=== PATIENT | male | born 1975 | race Caucasian/White ===

== ENCOUNTER 2018-02-10 19:45 | Emergency (ER) | payer SELFPAY ==
[2018-02-10 19:56] VITALS: RESP 20; O2SAT 99
[2018-02-10] MEDS ORDERED: Sodium Chloride 0.9% 1,000 ML IV ONE ×2 (20:10→21:26)
[2018-02-10 20:24] LABS: BASO # 0.1 K/uL (0.0-0.2); BASO % 0.7 % (0.0-2.0); EOS % 0.1 % (0.0-4.0); HEMOGLOBIN 15.6 g/dL (12.0-18.0); LYMPH # 1.5 K/uL (1.0-4.3); LYMPH % 9.5 % (20.0-40.0); MEAN CELL VOLUME 89.1 fL (80.0-94.0); MEAN CORPUSCULAR HEMOGLOBIN 30.9 pg (27.0-31.0); MEAN CORPUSCULAR HGB CONC 34.7 g/dL (33.0-37.0); MEAN PLATELET VOLUME 8.4 fL (7.2-11.7); MONO # 0.6 K/uL (0.0-0.8); MONO % 3.8 % (0.0-10.0); NEUT # 13.5 K/uL (1.8-7.0); NEUT % 85.9 % (50.0-75.0); NRBC % 0.1 % (0.0-2.0); PLATELET COUNT 330 K/uL (130-400); RBC 5.04 Mil/uL (4.40-5.90); RED CELL DISTRIBUTION WIDTH 13.1 % (11.5-14.5); WHITE BLOOD COUNT 15.7 K/uL (4.8-10.8)
[2018-02-10 20:52] LABS: BASOPHIL 1 % (0-2); LYMPHOCYTE 13 % (20-40); MONOCYTE 6 % (0-10); NEUTROPHIL 80 % (50-75); PLATELET ESTIMATE NORMAL (NORMAL); TOTAL CELLS COUNTED 100
[2018-02-10 20:56] LABS: ALB/GLOB RATIO 1.5 (1.0-2.1); ALBUMIN 4.4 g/dL (3.5-5.0); ALT/SGPT 28 U/L (21-72); AST/SGOT 26 U/L (17-59); BLOOD UREA NITROGEN 10 mg/dL (9-20); CALCIUM 9.7 mg/dl (8.6-10.4); GFR NON-AFRICAN AMERICAN > 60; LIPASE 34 U/L (23-300)
--- NOTE | 2018-02-10 21:13 | C.PDOC ---
History Of Present Illness 42 year old male, with no significant past medical history, presents to the ED for evaluation of vomiting and diffuse abdominal pain which started yesterday. Patient also reports experiencing chest pain after vomiting. Patient admits to drinking yesterday. He denies fever, chills, cough, shortness of breath, dizziness, syncope, urinary symptoms, recent antibiotics use, or recent travel. Patient's last bowel movement was yesterday, states it was normal. Time Seen by Provider: 02/10/18 19:55 Chief Complaint (Nursing): GI Problem History Per: Patient History/Exam Limitations: no limitations Onset/Duration Of Symptoms: Hrs Quality Of Discomfort: "Pain" Associated Symptoms: Nausea, Vomiting. denies: Fever, Chills Last Bowel Movement: Yesterday Additional History Per: Patient Past Medical History Reviewed: Historical Data, Nursing Documentation, Vital Signs Vital Signs: Last Vital Signs Temp 98.3 F 02/10/18 19:52 Pulse 56 L 02/10/18 19:52 Resp 20 02/10/18 19:52 BP 139/55 L 02/10/18 19:52 Pulse Ox 99 02/10/18 19:52 - Medical History PMH: Gastrointestinal Ulcer, Gall Bladder Disease (gallstones) Surgical History: No Surg Hx Family History: States: Unknown Family Hx - Social History Hx Alcohol Use: Yes Hx Substance Use: Yes - Immunization History Hx Tetanus Toxoid Vaccination: No Hx Influenza Vaccination: No Hx Pneumococcal Vaccination: No Review Of Systems Constitutional: Negative for: Fever, Chills Cardiovascular: Positive for: Chest Pain Gastrointestinal: Positive for: Vomiting, Abdominal Pain Genitourinary: Negative for: Dysuria, Hematuria Neurological: Negative for: Dizziness, Other Physical Exam - Physical Exam Appears: Non-toxic, No Acute Distress, Other (actively vomiting ) Skin: Normal Color, Warm, Dry Head: Atraumatic, Normacephalic Eye(s): bilateral: Normal Inspection Oral Mucosa: Moist Neck: Supple Chest: Symmetrical, No Deformity, Tenderness (anterior chest wall ) Cardiovascular: Rhythm Regular, No Murmur Respiratory: Normal Breath Sounds, No Rales, No Rhonchi, No Wheezing Gastrointestinal/Abdominal: Bowel Sounds (normal ), Soft, Tenderness (diffuse ), No Guarding, No Rebound Extremity: Normal ROM, Capillary Refill (less than 2 seconds ) Neurological/Psych: Oriented x3, Normal Speech, Normal Cognition ED Course And Treatment - Laboratory Results Result Diagrams: 02/10/18 21:21 02/10/18 20:39 O2 Sat by Pulse Oximetry: 99 (on RA) Pulse Ox Interpretation: Normal - CT Scan/US CT A/P Other Rad Studies (CT/US): Read By Radiologist, Radiology Report Reviewed CT/US Interpretation: CLINICAL HISTORY: Abdominal pain, vomiting. TECHNIQUE: Multiple axial, coronal, sagittal CT images were obtained through the abdomen and pelvis after administration of intravenous contrast material. 100MLS VISI 320. COMMENTS: Several subcentimeter hepatic hypodensities are present too small to accurately characterize consistent with small cysts versus hemangiomas. There is no intra or extrahepatic biliary ductal dilatation. The spleen is normal. The gallbladder is within normal limits. The pancreas is of normal contour and attenuation characteristics. There is no evidence of adrenal mass. Both kidneys demonstrate prompt and equal nephrograms. The kidneys are normal in size, shape and configuration. There is no evidence of renal or ureteral mass. No renal or ureteral calculi are identified. There is no hydroureter or hydronephrosis. There is a 1.5 x 1.2 cm hyperdense lesion present in the mid pole of the left kidney measuring approximately 65 Hounsfield units which may represent hemorrhagic or proteinaceous cyst. Nevertheless further evaluation is recommended with CT or MRI pre and post contrast. Several subcentimeter cortical simple cysts present in the left kidney. Small hiatal hernia is seen. No evidence for appendicitis. There is circumferential wall thickening involving all colonic segments consistent with sanchez-colitis. No evidence for small or large bowel obstruction. There is no evidence of abdominal ascites or lymphadenopathy. There are small bilateral inguinal hernias each containing fluid. There is no evidence of intrinsic or extrinsic bladder mass. There is no pelvic ascites or lymphadenopathy. Images of the lung bases show no evidence of pleural or parenchymal mass. There are no pleural effusions. The bony structures are free of lytic or blastic lesions. IMPRESSION: 1. Several subcentimeter hepatic hypodensities too small to accurately characterize consistent with small cysts versus hemangiomas. 2. Hyperdense lesion in the mid pole of the left kidney measuring approximately 65 Hounsfield units which may represent hemorrhagic or proteinaceous cyst. Nevertheless further evaluation is recommended with CT or MRI pre and post contrast. 3. Several subcentimeter cortical simple cysts present in the left kidney. 4. Small hiatal hernia. 5. Sanchez-colitis. Infectious and inflammatory etiologies are considered. 6. Small bilateral inguinal hernias each containing fluid. Medical Decision Making Medical Decision Making: Progress: Bloodwork, urinalysis, CT A/P, Obstructive Series XR, EKG ordered and reviewed. Morphine IVP, Pepcid IVP, Reglan IVP, Zofran IVP, and IV Fluids given. 0100 Case discussed with Valentine Bruno (hospitalist), who accepts the patient. Requests CBC and antibiotics. Patient states he left a rent-a-car at the gas station prior to the ambulance picking him up. Patient states he needs to leave the ED to go and move his car. Patient states he will return later tonight. Patient refuses to sign AMA form. Patient returned to the ED at around 0254. Accepted for admission. Disposition - Disposition Disposition: AGAINST MEDICAL ADVICE - Scribe Statement The provider has reviewed the documentation as recorded by the Scribe (Argelia Bruno) Provider Attestation: All medical record entries made by the Scribe were at my direction and personally dictated by me. I have reviewed the chart and agree that the record accurately reflects my personal performance of the history, physical exam, medical decision making, and the department course for this patient. I have also personally directed, reviewed, and agree with the discharge instructions and disposition.
[2018-02-10 21:25] LABS: BASO # 0.1 K/uL (0.0-0.2); BASO % 0.2 % (0.0-2.0); HEMOGLOBIN 14.2 g/dL (12.0-18.0); LYMPH # 0.9 K/uL (1.0-4.3); LYMPH % 3.9 % (20.0-40.0); MEAN CELL VOLUME 90.8 fL (80.0-94.0); MEAN CORPUSCULAR HEMOGLOBIN 30.7 pg (27.0-31.0); MEAN CORPUSCULAR HGB CONC 33.9 g/dL (33.0-37.0); MEAN PLATELET VOLUME 8.4 fL (7.2-11.7); MONO # 0.7 K/uL (0.0-0.8); MONO % 2.7 % (0.0-10.0); NEUT # 22.4 K/uL (1.8-7.0); NEUT % 93.2 % (50.0-75.0); NRBC % 0.2 % (0.0-2.0); RBC 4.62 Mil/uL (4.40-5.90); RED CELL DISTRIBUTION WIDTH 13.1 % (11.5-14.5)
[2018-02-10 21:26] LABS: WHITE BLOOD COUNT 24.1 K/uL (4.8-10.8)
[2018-02-10] MEDS ORDERED: Iodixanol 320 MG/ML 100 ML BOTTLE IV ONE (21:38)
[2018-02-10] MEDS ORDERED: Sodium Chloride 0.9% 1,000 ML ONE (22:07)
[2018-02-11] MEDS ORDERED: metroNIDAZOLE IV 500 mg/100 ml 500 MG/100 ML BAG IVPB STA (00:05)
[2018-02-11] MEDS ORDERED: Ciprofloxacin 400mg/200ml D5W 400 MG/200 ML BAG IVPB STA (00:06)
[2018-02-11] MEDS ORDERED: metroNIDAZOLE IV 500 mg/100 ml 500 MG/100 ML BAG IVPB SCH (00:15)
[2018-02-11] MEDS ORDERED: Sodium Chloride 0.9% 1,000 ML IV SCH (00:15)
[2018-02-11] MEDS ORDERED: Ciprofloxacin 400mg/200ml D5W 400 MG/200 ML BAG IVPB SCH (00:15)
[2018-02-11 00:30] VITALS: BP 132/70; PULSE 74; TEMP 98.9
[2018-02-11 00:39] LABS: SQUAMOUS EPITHIAL < 1 /hpf (0-5); URINE BILIRUBIN NEGATIVE (NEGATIVE); URINE BLOOD NEGATIVE (NEGATIVE); URINE CLARITY Clear (Clear); URINE COLOR Yellow (YELLOW); URINE GLUCOSE (UA) NORMAL (Normal); URINE LEUKOCYTE ESTERASE NEG Leu/uL (Negative); URINE PROTEIN 1+ mg/dL (NEGATIVE); URINE UROBILINOGEN NORMAL mg/dL (0.2-1.0)
[2018-02-11 00:55] LABS: BARBITURATES, UR NEGATIVE (NEGATIVE); BENZODIAZEPINES, UR NEGATIVE (NEGATIVE); PHENCYCLIDINE, UR NEGATIVE (NEGATIVE)
[2018-02-11 00:56] LABS: OPIATES, UR POSITIVE (NEGATIVE)
[2018-02-11] MEDS ORDERED: Lactobacillus Acidophilus 500 MU Cap PO SCH (10:00)
--- NOTE | 2018-02-11 10:10 | RAD ---
Date of service: 02/10/2018 PROCEDURE: Radiographs of the chest and abdomen (obstructive series) HISTORY: abd pain COMPARISON: No prior. TECHNIQUE: AP radiograph of the chest, with upright and supine radiographs of the abdomen. FINDINGS: CHEST: Lungs: Clear. Cardiovascular: Normal size heart. No pulmonary vascular congestion. No aortic atherosclerotic calcification present Pleura: No pleural fluid. No pneumothorax. Other findings: None. ABDOMEN AND PELVIS: Bowel: Unremarkable bowel gas pattern. No evidence of mechanical obstruction. Free air: None. Bones: Unremarkable. Other findings: None. IMPRESSION: Unremarkable radiographs of chest and abdomen. No evidence of mechanical bowel obstruction.
--- NOTE | 2018-02-11 11:55 | CT ---
Date of service: 02/10/2018 PROCEDURE: CT Abdomen and Pelvis. HISTORY: Abdominal pain/vomiting COMPARISON: Correlation made with obstructive series obtained earlier same day TECHNIQUE: Contiguous helical/transaxial sections of the abdomen pelvis performed following intravenous injection of approximately 100 cc Visipaque 320 contrast material. Additional 2D sagittal and coronal reformats generated. Radiation dose: Total exam DLP = 330.54 mGy-cm. This CT exam was performed using one or more of the following dose reduction techniques: Automated exposure control, adjustment of the mA and/or kV according to patient size, and/or use of iterative reconstruction technique. FINDINGS: LOWER THORAX: The lung bases clear. No infiltrate effusion or basilar pneumothorax. Heart size within range of normal. No significant pericardial effusion. The there is a small hiatal hernia with slight wall thickening of the distal esophagus likely due to protrusion of gastric mucosa. Esophagitis not excluded. LIVER: Liver is upper limits of normal measuring nearly 19 cm in CC dimension. Minor fatty hepatic infiltration.. There are a few tiny subcentimeter foci seen scattered about the hepatic parenchyma (1 in the superior aspect right lobe and the superior aspect left lobe liver) too small to characterize though probably represent small hepatic cysts or hemangiomas GALLBLADDER AND BILE DUCTS: Gallbladder physiologically distended. No evidence of intraluminal gallbladder calculi. PANCREAS: Unremarkable. No mass. No ductal dilatation. The visualized portions of the pancreas appear unremarkable. SPLEEN: Unremarkable. No splenomegaly. ADRENALS: There is a left adrenal nodule measures approximately 13 mm. Followup the noncontrast MRI of the adrenal glands suggested for further evaluation KIDNEYS AND URETERS: Kidneys demonstrate relatively symmetric nephrograms. No evidence of nephrolithiasis or hydronephrosis. There appear to be at least 3 low-attenuation foci left kidney the largest which is partially exophytic and measures approximately 15 mm. 2 of these foci exhibit Hounsfield units in the mid 30s possibly representing simple cysts. Another exophytic lesion seen along the lateral cortex lower pole measuring 8.6 mm demonstrates Hounsfield units in the upper 60s suggesting a solid lesion. While this could represent a hyperdense or hemorrhagic cyst as well, the possibility of a solid lesion including neoplasm must be considered. Follow-up ultrasound suggested. BLADDER: Urinary bladder is incompletely distended which in part accounts for thick-walled appearance. Muscular hypertrophy may contribute. Cystitis would be less likely in a male patient though not completely excluded therefore correlation with urinalysis recommended REPRODUCTIVE: Prostate gland measures approximately 4.2 cm in transverse dimension APPENDIX: Normal appearing appendix without evidence of periappendiceal inflammatory changes. BOWEL: Evaluation of the bowel is somewhat limited due to the lack of oral contrast material. The stomach is incompletely distended.. Visualized loops of small bowel exhibit relatively normal contour and caliber. No evidence of acute mechanical small bowel obstruction. There is wall thickening of the distal at ascending, transverse and a good portion of the descending colon consistent with a nonspecific diffuse colitis; rule out infectious or inflammatory etiologies. PERITONEUM: Unremarkable. No fluid collection. No free air. LYMPH NODES: Unremarkable. No enlarged lymph nodes. VASCULATURE: Unremarkable. No aortic aneurysm. No significant aortic atherosclerotic calcification or mural plaque present. BONES: Acute fractures. OTHER FINDINGS: None. IMPRESSION: Findings are consistent with a a nonspecific colitis as described. Clinical correlation recommended. Borderline hepatomegaly. Mild fatty infiltration head there are few tiny foci low-attenuation within the hepatic parenchyma possibly representing small cysts or hemangiomas. Follow-up CT scan at interval recommended. Several low-attenuation foci left kidney 1 of which exhibits Hounsfield units in the upper 60s. While this could represent a hyperdense or hemorrhagic cyst, the possibility of neoplasm not excluded. Follow-up ultrasound recommended for further evaluation the the Left adrenal nodule.. Follow-up MRI of the adrenal glands recommended. This report was placed in PA review folder for follow up.
--- NOTE | 2018-02-11 12:07 | CARD ---
APPROVED REPORT Date of service: 02/10/2018 EKG Measurement Heart [id number] [place] 156P [id number] <Conclusion> Sinus bradycardia Incomplete right bundle branch block Borderline ECG
== END 2018-02-11 00:27 | disposition left against medical advice (07) ==
LOC: C.ER 19:45 → C.9E 02-11 00:07 → UNDOADMIN 02-11 00:07 → UNDODISIN 02-11 00:20 → C.9E 02-11 00:32 → C.5S 02-11 00:32
DX: K52.9 Noninfective gastroenteritis and colitis, unspecified (principal); N28.1 Cyst of kidney, acquired; K44.9 Diaphragmatic hernia without obstruction or gangrene

== ENCOUNTER 2018-02-11 01:37 | Inpatient (IN) | payer OTHER ==
[2018-02-11] MEDS ORDERED: Sodium Chloride 0.9% 1,000 ML IV ONE (01:59)
[2018-02-11] MEDS ORDERED: Ciprofloxacin 400mg/200ml D5W 400 MG/200 ML BAG IVPB STA (02:00)
[2018-02-11] MEDS ORDERED: metroNIDAZOLE IV 500 mg/100 ml 500 MG/100 ML BAG IVPB STA (02:01)
[2018-02-11 02:35] LABS: BASO # 0.1 K/uL (0.0-0.2); BASO % 0.3 % (0.0-2.0); HEMOGLOBIN 12.9 g/dL (12.0-18.0); LYMPH # 1.2 K/uL (1.0-4.3); LYMPH % 7.9 % (20.0-40.0); MEAN CELL VOLUME 89.4 fL (80.0-94.0); MEAN CORPUSCULAR HEMOGLOBIN 30.1 pg (27.0-31.0); MEAN CORPUSCULAR HGB CONC 33.7 g/dL (33.0-37.0); MEAN PLATELET VOLUME 8.4 fL (7.2-11.7); MONO # 0.5 K/uL (0.0-0.8); NEUT # 13.4 K/uL (1.8-7.0); NEUT % 88.8 % (50.0-75.0); PLATELET COUNT 261 K/uL (130-400); RBC 4.29 Mil/uL (4.40-5.90); RED CELL DISTRIBUTION WIDTH 12.8 % (11.5-14.5); WHITE BLOOD COUNT 15.1 K/uL (4.8-10.8)
[2018-02-11 02:51] LABS: ALB/GLOB RATIO 1.5 (1.0-2.1); ALBUMIN 4.1 g/dL (3.5-5.0); ALT/SGPT 18 U/L (21-72); AST/SGOT 37 U/L (17-59); BLOOD UREA NITROGEN 10 mg/dL (9-20); CALCIUM 8.9 mg/dl (8.6-10.4); GFR NON-AFRICAN AMERICAN > 60
--- NOTE | 2018-02-11 03:16 | CP.PCM.HP ---
History of Present Illness - History of Present Illness History of Present Illness: cc: "I vomited and have chest pain" Mr. Padilla is a 42 year old male with PMH of gastric ulcers with multiple admission to hospitals x3 in 2018 is admitted to [facility] for streaks of blood, bilious vomiting x15 with associated chest pain today. Patient was driving back from [place] on 02/10 morning and had abrupt onset of vomiting while driving. Patient usually goes to [facility] as he lives in [place] for his symptoms but was unable to make it pass [facility], hence admitted here. Patient reports of having EGD done at [facility] and pending colonoscopy. Patient has not been compliant with his follow up with outpatient GI. 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 Patient complains of chest pain that radiates to the abdomen with prominence to the left side and difficulty swallowing. Patient had his last bowel movement on 02/10 and no other urinary complaints. Patient denies any fever, dizziness, palpitations, shortness of breath, cough, nausea, vomiting, dysuria, urinary incontinence or swelling. This episode is very similar to his previous episodes this year. 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 absent: Anorexia, Fever, Frequent Falls, Headache, Increased Appetite, Lethargy, Malaise, Weakness - EENT Eyes: absent: Blurred Vision, Diplopia, Sees Flashes Ears: absent: Ear Discharge, Ear Pain, Tinnitus Nose/Mouth/Throat: absent: Epistaxis, Nasal Discharge, Nasal Trauma, Bleeding Gums, Dysphagia, Odynophagia - Cardiovascular Cardiovascular: Chest Pain, Diaphoresis. absent: Chest Pain with Activity, Dyspnea, Dyspnea on Exertion, Irregular Heart Rhythm, Pain Radiating to Arm /Neck/Jaw - Respiratory Respiratory: absent: Cough, Dyspnea, Change in Mucous Color - Gastrointestinal Gastrointestinal: Hematemesis. absent: Constipation, Diarrhea, Dysphagia, Melena, Nausea, Vomiting - Genitourinary Genitourinary: absent: Difficulty Urinating, Dysuria, Urinary Frequency, Urinary Hesitance - Musculoskeletal Musculoskeletal: absent: Abnormal Gait, Arthralgias, Back Pain, Muscle Weakness, Myalgias, Stiffness, Tingling - Integumentary Integumentary: absent: Bleeding Lesions, Swelling, Unusual Bruising - Neurological Neurological: absent: Abnormal Gait, Dizziness, Numbness, Syncope, Vertigo, Weakness - Psychiatric Psychiatric: absent: Anhedonia, Anxiety, Depression, Hopelessness - Endocrine Endocrine: Excessive Sweating, Fatigue. absent: Cold Intolorance, Heat I ntolorance, Palpitations - Hematologic/Lymphatic Hematologic: absent: Easy Bleeding, Easy Bruising Past Patient History - Infectious Disease Hx of Infectious Diseases: None - Past Social History Smoking Status: Never Smoked Alcohol: Social Drugs: Cannabis - GASTROINTESTINAL Hx Gall Bladder Disease: Yes (gallstones) - PSYCHIATRIC Hx Substance Use: Yes - SURGICAL HISTORY Hx Surgeries: No - ANESTHESIA Hx Anesthesia: No Meds Allergies/Adverse Reactions: Allergies Allergy/AdvReac Type Severity Reaction Status Date / Time Penicillins Allergy Verified 02/10/18 19:56 Physical Exam - Constitutional Appears: Non-toxic, No Acute Distress - Head Exam Head Exam: ATRAUMATIC, NORMOCEPHALIC - Eye Exam Eye Exam: EOMI, Normal appearance, PERRL - ENT Exam ENT Exam: Mucous Membranes Dry Additional comments: erythema in posterior pharynx - Neck Exam Neck exam: Negative for: Lymphadenopathy, Tenderness, Thyromegaly - Respiratory Exam Respiratory Exam: Clear to Auscultation Bilateral, NORMAL BREATHING PATTERN. absent: Accessory Muscle Use, Decreased Breath Sounds, Rales, Rhonchi, Wheezes - Cardiovascular Exam Cardiovascular Exam: REGULAR RHYTHM, +S1, +S2. absent: Gallop, Rubs, Systolic Murmur - GI/Abdominal Exam GI & Abdominal Exam: Guarding, Normal Bowel Sounds, Soft, Tenderness. absent: Distended, Firm, Rebound - Extremities Exam Extremities exam: Positive for: normal capillary refill, normal inspection. Negative for: calf tenderness, pedal edema Additional comments: pulses present bilaterally (radial, DP, PT) onchomycosis - Back Exam Back exam: absent: CVA tenderness (L), CVA tenderness (R) - Neurological Exam Neurological exam: Alert, CN II-XII Intact, Normal Gait, Oriented x3, Reflexes Normal - Psychiatric Exam Psychiatric exam: Anxious, Normal Affect, Normal Mood - Skin Skin Exam: Dry, Normal Color, Warm Results - Vital Signs Recent Vital Signs: Last Vital Signs Temp 99 F 02/11/18 01:59 Pulse 78 02/11/18 01:59 Resp 20 02/11/18 01:59 BP 119/62 02/11/18 01:59 Pulse Ox 99 02/11/18 01:59 - Labs Result Diagrams: 02/11/18 02:25 02/11/18 02:30 Labs: Laboratory Results - last 24 hr 02/11/18 02/11/18 02:25 02:30 WBC 15.1 H RBC 4.29 L Hgb 12.9 Hct 38.3 MCV 89.4 MCH 30.1 MCHC 33.7 RDW 12.8 Plt Count 261 D MPV 8.4 Neut % (Auto) 88.8 H Lymph % (Auto) 7.9 L [place] % (Auto) 3.0 Eos % (Auto) 0.0 Baso % (Auto) 0.3 Neut # (Auto) 13.4 H Lymph # (Auto) 1.2 [place] # (Auto) 0.5 Eos # (Auto) 0.0 Baso # (Auto) 0.1 Sodium 140 Potassium 4.2 Chloride 104 Carbon Dioxide 24 Anion Gap 16 BUN 10 Creatinine 0.7 L Est GFR ( Amer) > 60 Est GFR (Non-Af Amer) > 60 Random Glucose 118 H Calcium 8.9 Total Bilirubin 0.9 AST 37 ALT 18 L D Alkaline Phosphatase 55 Total Protein 6.8 Albumin 4.1 Globulin 2.7 Albumin/Globulin Ratio 1.5 Assessment & Plan - Assessment and Plan (Free Text) Assessment: 42yoM PMH gastric ulcer, gallstones admitted for pancolitis. Plan: Pancolitis - unknown if infectious or inflammatory - CT A/P: pending read, prelim: sanchez-colitis - UA (02/11): neg - lipase 34, trop neg - Cipro 400mg IVPB q12 (started in ED on 02/11) - Flagyl 500mg IVPB q8 (started in ED on 02/11) - alternating Zofran 4mg IVP q6 prn and Reglan 10mg IVP q6 prn - received 3L NS in ED. cont maintenance IVF NS@110 - f/u blood Cx (02/11) - pt advised to get colonoscopy once pancolitis resolves - noted that outpatient team suggested colonoscopy earlier this year, however patient did not follow up Leukocytosis - possibly 2/2 to stress from vomiting - EBC 15.7 -> 24.1 in ED. Stat repeat 15.1 - UA neg, no urinary complaints, order Urine Cx if starts complaining - f/u blood Cx (02/11) - likely reactive to stress Chest Pain - more sore in nature, likely 2/2 multiple episodes of n/v prior to arrival - patient states similar to previous vomiting episodes - unlikely cardiac in origin - Trop neg in ED, will not trend ROMIs - EKG: Sinus tracy @ 55 with inverted P waves - f/u repeat EKG for QTc and P wave inversions Bilateral inguinal hernia - as noted on CT A/P - on exam, no hernias palpated on inguinal or scrotal area L kidney hyperdense area - as noted on CT A/P - MRI w/ and w/o contrast as outpatient Liver Cysts - multiple - as noted on CT A/P - f/u MRI as outpatient Cannabis Use - UDS positive for Cannabinoids and Opiates - was given morphine in ED prior to urine collection - f/u HIV History of Gastric Ulcer - EGD done at [facility] - Protonix 40mg IVP daily PPx DVT: low risk, SCDs only GI: Protnix 40mg IVP daily Diet: CLD Dispo: please ADAT, if no more episodes of n/v by late afternoon, please discharge patient for evaluation by his outpatient team at [facility]. Please instruct him to request the MRI at the earliest convenience. d/w Dr. Valentine Rose PGY-1 - Date & Time Date: 02/11/18 Time: 02:00
[2018-02-11 03:24] VITALS: RESP 20
[2018-02-11 04:00] LABS: BANDS 1 % (0-2); LYMPHOCYTE 7 % (20-40); MONOCYTE 1 % (0-10); NEUTROPHIL 91 % (50-75); PLATELET ESTIMATE NORMAL (NORMAL); TOTAL CELLS COUNTED 100
[2018-02-11] MEDS: Sodium Chloride 0.9% 1,000 ML IV SCH ×3 (06:29→19:11)
[2018-02-11 07:21] LABS: SQUAMOUS EPITHIAL < 1 /hpf (0-5); URINE BILIRUBIN NEGATIVE (NEGATIVE); URINE BLOOD NEGATIVE (NEGATIVE); URINE CLARITY Clear (Clear); URINE COLOR Yellow (YELLOW); URINE GLUCOSE (UA) NORMAL (Normal); URINE LEUKOCYTE ESTERASE NEG Leu/uL (Negative); URINE PROTEIN NEGATIVE (NEGATIVE); URINE UROBILINOGEN NORMAL mg/dL (0.2-1.0)
[2018-02-11] MEDS: metroNIDAZOLE IV 500 mg/100 ml 500 MG/100 ML BAG IVPB SCH ×2 (09:50→17:49)
[2018-02-11] MEDS ORDERED: Pantoprazole 40 mg EC Tab PO SCH (10:00)
[2018-02-11] MEDS: Saccharomyces Boulardi 250 mg Cap PO SCH ×2 (12:26→17:48)
--- NOTE | 2018-02-11 13:06 | CP.PCM.PN ---
<Mary Lou Feliciano - Last Filed: 02/11/18 17:27> Subjective - Date & Time of Evaluation Date of Evaluation: 02/11/18 Time of Evaluation: 09:30 - Subjective Subjective: PGY-1 Mary Lou Feliciano D.O. progress note for Dr. Haro's service. Patient was seen and examined this morning. Patient states that he has not vomited since 8PM last night. He is tolerating clear liquids. Denies nausea. His only complaint is mild LUQ abdominal tenderness. Objective - Vital Signs/Intake and Output Vital Signs (last 24 hours): Temp Pulse Resp BP Pulse Ox 99.8 F H 75 20 105/58 L 100 02/11/18 08:57 02/11/18 09:47 02/11/18 08:57 02/11/18 09:47 02/11/18 08:57 Intake and Output: 02/11/18 02/11/18 06:59 18:59 Intake Total 300 Balance 300 - Medications Medications: Current Medications Ciprofloxacin (Cipro 400mg/200ml Dsw) 400 mg in 200 mls @ 133 mls/hr IVPB Q12H RADHAMES; Protocol Metronidazole (Flagyl) 500 mg in 100 mls @ 100 mls/hr IVPB Q8H RADHAMES; Protocol Last Admin: 02/11/18 09:50 Dose: 100 mls/hr Sodium Chloride (Sodium Chloride 0.9%) 1,000 mls @ 110 mls/hr IV .Q9H6M [facility] Last Admin: 02/11/18 12:27 Dose: Not Given Metoclopramide HCl (Reglan) 10 mg IVP Q6H PRN PRN Reason: Nausea/Vomiting Ondansetron HCl (Zofran Inj) 4 mg IVP Q6H PRN PRN Reason: Nausea/Vomiting Pantoprazole Sodium (Protonix Inj) 40 mg IVP DAILY [facility] Last Admin: 02/11/18 09:50 Dose: 40 mg Pneumococcal Polyvalent Vaccine (Pneumovax 23 Vaccine) 0.5 ml IM .ONCE ONE Stop: 02/13/18 10:01 Saccharomyces Boulardii (Florastor) 250 mg PO BID [facility] Last Admin: 02/11/18 12:26 Dose: 250 mg - Labs Labs: 02/11/18 02:25 02/11/18 02:30 - Constitutional Appears: No Acute Distress - Head Exam Head Exam: ATRAUMATIC, NORMAL INSPECTION, NORMOCEPHALIC - Eye Exam Eye Exam: EOMI, Normal appearance, PERRL - ENT Exam ENT Exam: Mucous Membranes Moist - Respiratory Exam Respiratory Exam: Clear to Ausculation Bilateral, NORMAL BREATHING PATTERN. absent: Respiratory Distress - Cardiovascular Exam Cardiovascular Exam: REGULAR RHYTHM, +S1, +S2 - GI/Abdominal Exam GI & Abdominal Exam: Soft, Tenderness (LUQ mild), Normal Bowel Sounds. absent: Distended, Guarding, Rigid, Mass, Rebound - Rectal Exam Rectal Exam: Deferred - Extremities Exam Extremities Exam: Normal Inspection - Neurological Exam Neurological Exam: Alert, Awake, CN II-XII Intact, Normal Gait, Oriented x3 - Psychiatric Exam Psychiatric exam: Normal Affect, Normal Mood - Skin Skin Exam: Dry, Intact, Normal Color, Warm Assessment and Plan - Assessment and Plan (Free Text) Assessment: Patient is a 42 yo male with a history of gastric ulcers and marijuana use who presented with hematemesis. He states this is the 4th time this has happened to him this year. He has had an EGD but not colonoscopy due to being "scared." He typically goes to [facility] care. CT shows pancolitis. Plan: Hematemesis- resolved - Reglan 10 mg IV Q6H PRN - Zofran 4 mg IV Q6H PRN - Advance diet as tolerated - Advised to stop NSAIDs, ASA Pancolitis - Leukocytosis resolved - CT A/P: pancolitis, liver cysts, kidney cysts - Blood Cx pending - NS @ 100 mL/hr - Cipro 400 mg IV Q12H - Flagyl 500 mg IV Q8H - Colonoscopy as outpatient - MRI as outpatient [facility] use- vomiting does not seem to be correlated with use - UDS positive for cannabinoids - Cessation counseling Ppx: VTE: SCDs, chemical anticoagulation contraindicated due to hemetemesis GI: PTX 40 mg IV daily Code status: full code Case was discussed with attending, Dr. Haro. <Rosangela Haro V - Last Filed: 02/11/18 19:54> Objective - Vital Signs/Intake and Output Vital Signs (last 24 hours): Temp Pulse Resp BP Pulse Ox 98.3 F 66 20 106/58 L 97 02/11/18 16:00 02/11/18 16:00 11/19/18 16:00 02/11/18 16:00 02/11/18 16:00 Intake and Output: 02/11/18 02/12/18 18:59 06:59 Intake Total 1080 Balance 1080 - Medications Medications: Current Medications Ciprofloxacin (Cipro 400mg/200ml Dsw) 400 mg in 200 mls @ 133 mls/hr IVPB Q12H RADHAMES; Protocol Last Admin: 02/11/18 13:50 Dose: 133 mls/hr Metronidazole (Flagyl) 500 mg in 100 mls @ 100 mls/hr IVPB Q8H RADHAMES; Protocol Last Admin: 02/11/18 17:49 Dose: 100 mls/hr Sodium Chloride (Sodium Chloride 0.9%) 1,000 mls @ 110 mls/hr IV .Q9H6M [facility] Last Admin: 02/11/18 19:11 Dose: 110 mls/hr Influenza Virus Vaccine (Fluzone Quad 1345-2257) 60 mcg IM .ONCE ONE Stop: 02/13/18 10:01 Metoclopramide HCl (Reglan) 10 mg IVP Q6H PRN PRN Reason: Nausea/Vomiting Ondansetron HCl (Zofran Inj) 4 mg IVP Q6H PRN PRN Reason: Nausea/Vomiting Pantoprazole Sodium (Protonix Inj) 40 mg IVP DAILY [facility] Last Admin: 02/11/18 09:50 Dose: 40 mg Pneumococcal Polyvalent Vaccine (Pneumovax 23 Vaccine) 0.5 ml IM .ONCE ONE Stop: 02/13/18 10:01 Saccharomyces Boulardii (Florastor) 250 mg PO BID [facility] Last Admin: 02/11/18 17:48 Dose: 250 mg - Labs Labs: 02/11/18 17:26 02/11/18 02:30 Attending/Attestation - Attestation I have personally seen and examined this patient.: Yes I have fully participated in the care of the patient.: Yes I have reviewed all pertinent clinical information, including history, physical exam and plan: Yes Notes (Text): Patient seen, examined and case discussed with day-time resident. Patient with history of esophageal ulcers comes in for nausea/vomitting recurrent but unable to follow-up at [facility] given severity of his symptoms. Patient initially left the ED on the to move his car but came back into the ED following. CT scan noted below. Patient on IV abx to cover for enteritis. Will advance diet as tolerated. Assessment/Plan 1) Pancolitis Assessment/Plan * Leukocytosis normalized. * CT Abdomen/Pelvis (02/11/18): nonspecific colitis. borderline hepatomegaly. mild fatty infiltration head, tiny foci low attenuation within the hepatic parenchyma small cysts or hemagniomas. Several low attenuation foci left kidney. Left Adrenal nodule. 2) Left Adrenal Nodule Assessment/Plan * CT Abdomen/Pelvis (02/11/18): nonspecific colitis. borderline hepatomegaly. mild fatty infiltration head, tiny foci low attenuation within the hepatic parenchyma small cysts or hemagniomas. Several l low attenuation foci left kidney. Left Adrenal nodule. 3) Kidney Cyst Assessment/Plan * CT Abdomen/Pelvis (02/11/18): nonspecific colitis. borderline hepatomegaly. mild fatty infiltration head, tiny foci low attenuation within the hepatic parenchyma small cysts or hemagniomas. Several l low attenuation foci left kidney. Left Adrenal nodule. * Will need follow-up workup 4) Leukocytosis Assessment/Plan * Likely secondary to pancolitis * White count has normalized. * Blood Cx (02/11/18): pending * Ciprofloxacin 200mg IVPB Q12H (active since 02/11/18) * Flagyl 500mg IVPB Q8H (active since 02/11/18) * NS 110cc/hr * Patient has had an EGD in the past but refused colonoscopy; I did indicated to him he will likely need a colonoscopy in light of colitis 5) Emesis * Reglan 10 mg IV Q6H PRN * Zofran 4 mg IV Q6H PRN * Advance diet as tolerated * Advised to stop NSAIDs, ASA 6) Marjuana use- vomiting does not seem to be correlated with use * UDS positive for cannabinoids * Cessation counseling 7) Ppx: * VTE: SCDs, chemical anticoagulation contraindicated due to risk of bleeding given ulcer history * GI: Protonix 40 mg IV daily Disposition: Continue IV abx, advance diet as tolerated. possible discharge tomorrow.
[2018-02-11] MEDS ORDERED: Ciprofloxacin 400mg/200ml D5W 400 MG/200 ML BAG IVPB SCH (14:00)
[2018-02-11 17:40] LABS: BASO % 0.4 % (0.0-2.0); EOS % 0.2 % (0.0-4.0); HEMOGLOBIN 12.1 g/dL (12.0-18.0); LYMPH # 2.6 K/uL (1.0-4.3); LYMPH % 28.1 % (20.0-40.0); MEAN CELL VOLUME 89.2 fL (80.0-94.0); MEAN CORPUSCULAR HEMOGLOBIN 30.5 pg (27.0-31.0); MEAN CORPUSCULAR HGB CONC 34.2 g/dL (33.0-37.0); MEAN PLATELET VOLUME 8.4 fL (7.2-11.7); MONO # 0.7 K/uL (0.0-0.8); MONO % 7.7 % (0.0-10.0); NEUT # 5.9 K/uL (1.8-7.0); NEUT % 63.6 % (50.0-75.0); NRBC % 0.1 % (0.0-2.0); RBC 3.99 Mil/uL (4.40-5.90); WHITE BLOOD COUNT 9.2 K/uL (4.8-10.8)
--- NOTE | 2018-02-11 20:46 | CP.PCM.DIS ---
Provider - Provider Date of Admission: 02/11/18 01:57 Attending physician: Rosangela Haro DO Time Spent in preparation of Discharge (in minutes): 45 Diagnosis - Discharge Diagnosis (1) Left against medical advice Status: Acute (2) Pancolitis Status: Acute Hospital Course - Lab Results Lab Results: Most Recent Lab Values WBC 9.2 K/uL (4.8-10.8) 02/11/18 17: RBC 3.99 Mil/uL (4.40-5.90) L 02/11/18 17:26 Hgb 12.1 g/dL (12.0-18.0) 02/11/18 17:26 Hct 35.6 % (35.0-51.0) 02/11/18 17: MCV 89.2 fL (80.0-94.0) 02/11/18 17:26 MCH 30.5 pg (27.0-31.0) 02/11/18 17:26 MCHC 34.2 g/dL (33.0-37.0) 02/11/18 17:26 RDW 13.0 % (11.5-14.5) 02/11/18 17:26 Plt Count 231 K/uL (130-400) 02/11/18 17:26 MPV 8.4 fL (7.2-11.7) 02/11/18 17:26 Neut % (Auto) 63.6 % (50.0-75.0) 02/11/18 17:26 Lymph % (Auto) 28.1 % (20.0-40.0) 02/11/18 17:26 [place] % (Auto) 7.7 % (0.0-10.0) 02/11/18 17:26 Eos % (Auto) 0.2 % (0.0-4.0) 02/11/18 17:26 Baso % (Auto) 0.4 % (0.0-2.0) 02/11/18 17:26 Neut # (Auto) 5.9 K/uL (1.8-7.0) 02/11/18 17:26 Lymph # (Auto) 2.6 K/uL (1.0-4.3) 02/11/18 17:26 [place]ton # (Auto) 0.7 K/uL (0.0-0.8) 02/11/18 17:26 Eos # (Auto) 0.0 K/uL (0.0-0.7) 02/11/18 17:26 Baso # (Auto) 0.0 K/uL (0.0-0.2) 02/11/18 17:26 Neutrophils % (Manual) 91 % (50-75) H 02/11/18 02:25 Band Neutrophils % 1 % (0-2) 02/11/18 02:25 Lymphocytes % (Manual) 7 % (20-40) L 02/11/18 02:25 Monocytes % (Manual) 1 % (0-10) 02/11/18 02:25 Platelet Estimate Normal (NORMAL) 02/11/18 02:25 Sodium 140 mmol/L (132-148) 02/11/18 02:30 Potassium 4.2 mmol/L (3.6-5.2) 02/11/18 02:30 Chloride 104 mmol/L (98-107) 02/11/18 02:30 Carbon Dioxide 24 mmol/L (22-30) 02/11/18 02:30 Anion Gap 16 (10-20) 02/11/18 02:30 BUN 10 mg/dL (9-20) 02/11/18 02:30 Creatinine 0.7 mg/dL (0.8-1.5) L 02/11/18 02:30 Est GFR ( Amer) > 60 02/11/18 02:30 Est GFR (Non-Af Amer) > 60 02/11/18 02:30 Random Glucose 118 mg/dL (75-110) H 02/11/18 02:30 Calcium 8.9 mg/dl (8.6-10.4) 02/11/18 02:30 Total Bilirubin 0.9 mg/dL (0.2-1.3) 02/11/18 02:30 AST 37 U/L (17-59) 02/11/18 02:30 ALT 18 U/L (21-72) L D 02/11/18 02:30 Alkaline Phosphatase 55 U/L (38-126) 02/11/18 02:30 Total Protein 6.8 g/dL (6.3-8.3) 02/11/18 02:30 Albumin 4.1 g/dL (3.5-5.0) 02/11/18 02:30 Globulin 2.7 gm/dL (2.2-3.9) 02/11/18 02:30 Albumin/Globulin Ratio 1.5 (1.0-2.1) 02/11/18 02:30 Urine Color Yellow (YELLOW) 02/11/18 07:14 Urine Clarity Clear (Clear) 02/11/18 07:14 Urine pH 6.0 (5.0-8.0) 02/11/18 07:14 Ur Specific [place] 1.032 (1.003-1.030) H 02/11/18 07:14 Urine Protein Negative mg/dL (NEGATIVE) 02/11/18 07:14 Urine Glucose (UA) Normal mg/dL (Normal) 02/11/18 07:14 Urine Ketones Negative mg/dL (NEGATIVE) 02/11/18 07:14 Urine Blood Negative (NEGATIVE) 02/11/18 07:14 Urine Nitrate Negative (NEGATIVE) 02/11/18 07:14 Urine Bilirubin Negative (NEGATIVE) 02/11/18 07:14 Urine Urobilinogen Normal mg/dL (0.2-1.0) 02/11/18 07:14 Ur Leukocyte Esterase Neg Jenna/uL (Negative) 02/11/18 07:14 Urine WBC (Auto) < 1 /hpf (0-5) 02/11/18 07:14 Urine RBC (Auto) < 1 /hpf (0-3) 02/11/18 07:14 Ur Squamous Epith Cells < 1 /hpf (0-5) 02/11/18 07:14 - Hospital Course Hospital Course: Mr. Padilla is a 42 year old male with PMH of gastric ulcers with multiple admission to hospitals x3 in 2018 is admitted to [facility] for st reaks of blood, bilious vomiting x15 with associated chest pain today. Patient was driving back from [place] on 02/10 morning and had abrupt onset of vomiting while driving. Patient usually goes to [facility] as he lives in [place] for his symptoms but was unable to make it pass [facility], hence admitted here. Patient reports of having EGD done at [facility] and pending colonoscopy. Patient has not been compliant with his follow up with outpatient GI. 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 Patient complains of chest pain that radiates to the abdomen with prominence to the left side and difficulty swallowing. Patient had his last bowel movement on 02/10 and no other urinary complaints. Patient denies any fever, dizziness, palpitations, shortness of breath, cough, nausea, vomiting, dysuria, urinary incontinence or swelling. This episode is very similar to his previous episodes this year. Obstructive series showed no evidence of mechanical bowel obstruction. CT A/P showed nonspecific colitis, borderline hepatomegaly with cysts vs hemangiomas, low attenuation foci at the L kidney representing hyperdense vs hemorrhagic cyst, and L adrenal nodule. His WBC was noted to jump from 15.7 -> 24.1. With Cipro/Flagyl, it fell to 15.1 and then 9.2 after another two doses of antibiotics. 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 However, his outside stressors, such as not being able to return his rental car and no sitters to take care of his pets, led him to not await culture and sensitivity results for more specific antibiotics. Primary Diagnosis: Leaving Against Medical Advice, Pancolitis Patient has decided to sign out AMA instead of waiting for his cultures to return. Patient can restart his home Prilosec. He is also being given the rest of the week's antibiotics and should take them as prescribed: Cipro 500mg by mouth twice a day Flagyl 500mg by mouth three times a day He must follow up with his PMD and GI specialist in [place] for continuing care of his pancolitis and further workup for his recurrent nausea and vomiting. He needs to get a colonoscopy as soon as possible once his pancolitis calms down. He needs a follow up MRI for the cysts in his kidney and liver. His PMD and GI specialist can request medical records if patient is unable to retrieve them in person at medical records. If symptoms return or worsen, go to any nearby ED. Patient understands the risks of leaving AMA, and agrees to keep to this outpatient treatment plan. This is a summary of the hospital course. Please refer to the EMR for more detail. - Date & Time of H&P Date of H&P: 02/11/18 Time of H&P: 21:00 Discharge Exam - Head Exam Head Exam: ATRAUMATIC, NORMAL INSPECTION, NORMOCEPHALIC - Eye Exam Eye Exam: EOMI, PERRL - ENT Exam ENT Exam: Mucous Membranes Dry - Respiratory Exam Respiratory Exam: Clear to PA & Lateral, UNREMARKABLE. absent: Rhonchi, Wheezes, Respiratory Distress - Cardiovascular Exam Cardiovascular Exam: REGULAR RHYTHM, +S1, +S2 - GI/Abdominal Exam GI & Abdominal Exam: Guarding, Normal Bowel Sounds, Soft, Tenderness. absent: Distended, Firm, Rebound - Extremities Exam Extremities exam: normal capillary refill, pedal pulses present - Back Exam Back exam: absent: CVA tenderness (L), CVA tenderness (R) - Neurological Exam Neurological exam: Alert, CN II-XII Intact, Normal Gait, Oriented x3 - Psychiatric Exam Psychiatric exam: Agitated, Anxious - Skin Skin Exam: Dry, Normal Color, Warm Additional comments: multiple skin breaks from failed sticks Discharge Plan - Discharge Medications Prescriptions: Ciprofloxacin [Cipro] 500 mg PO BID #12 tab metroNIDAZOLE [Flagyl] 500 mg PO TID #18 tab - Follow Up Plan Condition: GOOD Disposition: AGAINST MEDICAL ADVICE Additional Instructions: Patient has decided to sign out AMA instead of waiting for his cultures to return. Patient can restart his home Prilosec. He is also being given the rest of the week's antibiotics and should take them as prescribed: Cipro 500mg by mouth twice a day Flagyl 500mg by mouth three times a day He must follow up with his PMD and GI specialist in [place] for continuing care of his pancolitis and further workup for his recurrent nausea and vomiting. He needs to get a colonoscopy as soon as possible once his pancolitis calms down. He needs a follow up MRI for the cysts in his kidney and liver. His PMD and GI specialist can request medical records if patient is unable to retrieve them in person at medical records. If symptoms return or worsen, go to any nearby ED. Patient understands the risks of leaving AMA, and agrees to keep to this outpatient treatment plan.
[2018-02-12 00:52] VITALS: BP 106/58; PULSE 66; TEMP 98.3; O2SAT 97
[2018-02-13] MEDS ORDERED: Pneumococcal 23-Valent Vaccine IM ONE (10:00)
[2018-02-13] MEDS ORDERED: Influenza Vaccine 60 MCG/0.5 ML SYR (3 yr & up) IM ONE (10:00)
== END 2018-02-11 22:02 | disposition left against medical advice (07) | DRG 245 ==
LOC: C.ER 01:37 → C.5S 01:57
PROVIDERS: ADMIT Hospitalist; ATTEND Hospitalist
DX: K51.00 Ulcerative (chronic) pancolitis without complications (principal); K92.0 Hematemesis; K76.89 Other specified diseases of liver; D72.829 Elevated white blood cell count, unspecified; F12.90 Cannabis use, unspecified, uncomplicated; N28.1 Cyst of kidney, acquired